=== PATIENT | female | born 1990 | race Caucasian/White ===

== ENCOUNTER 2022-11-10 11:18 | Outpatient (CLI) | payer BC, MEDICAID, SELFPAY | END 2022-11-10 11:19 | disposition home or self-care (01) | PROVIDERS: PCP Nurse Practitioner Family; Visit Provider Nurse Practitioner Family | DX: B19.20 Unspecified viral hepatitis C without hepatic coma (principal) | CPT/HCPCS: 36415; 87522 ==

== ENCOUNTER 2022-11-11 20:49 | Emergency (ER) | payer BC, MEDICAID, SELFPAY ==
[2022-11-11 20:56] VITALS: BP 108/64; PULSE 65; RESP 18; TEMP 36.6; O2SAT 97; BMI 28.4
[2022-11-11 21:42] LABS: Add Urine Microscopic? YES; Bilirubin Urine Neg (Negative); Blood Urine 2+ (Negative); Glucose Urine UA Norm (Normal); Ketones Urine 1+ (Negative); Leukocyte Esterase Urine 2+ (Negative); Nitrate Urine Negative (Negative); Protein Urine Neg (Negative); Specific Gravity, Urine 1.025 (1.005-1.030); Urine Appearance SL Hazy (CLEAR); Urine Color Yellow (Yellow); Urobilinogen Urine Neg (Negative); pH Urine 5 (5-7)
[2022-11-11 21:43] LABS: Bacteria Urine 1+ /hpf; Mucus Urine 2+ /hpf; RBC Urine 0-4 /hpf (0-2)
[2022-11-11 21:45] LABS: Add Urine Culture? No; Trichomonas Urine 2+ /hpf
--- NOTE | 2022-11-11 22:32 | XRR_ITS ---
PROCEDURE INFORMATION: Exam: XR Chest Exam date and time: 11/11/2022 11:13 PM Age: 32 years old Clinical indication: Shortness of breath; Additional info: SOB TECHNIQUE: Imaging protocol: Radiologic exam of the chest. Views: 1 view. COMPARISON: CR XR chest 2V* [id number] 01/24/2018 9:03 AM FINDINGS: Lungs: Unremarkable. No consolidation. Pleural spaces: Unremarkable. No pleural effusion. No pneumothorax. Heart/Mediastinum: Unremarkable. No cardiomegaly. Bones/joints: Unremarkable. XR/XR chest 1V portable [id number] IMPRESSION: No change, unremarkable
--- NOTE | 2022-11-11 22:35 | W.ED.NAVMDI ---
HPI - Nausea/Vomiting/Diarrhea General: Chief complaint: Nausea/Vomiting/Diarrhea Stated complaint: n/v, coughing Time Seen by Provider: 11/11/22 22:23 Source: patient Mode of arrival: ambulatory Limitations: no limitations History of Present Illness: 32-year-old female states that over the last 2 days she been having nausea vomiting along with some diarrhea. She states she is also had cough with some congestion and slight shortness of breath. She states she has some chronic pain in her left lower lung that is not new but the other symptoms are new. She denies any dysuria she had some diffuse abdominal cramping denies any severe pains. She denies any worsening proving factors. Associated nausea: Yes Associated symtoms: Reports nausea; Denies chest pain, dysuria or headache(s) Review of Systems Const: Denies: fever(s) or chills ENMT: Denies: throat pain or dental pain Card: Denies: chest pain Resp: Reports: non-productive cough; Denies: dyspnea GI: Reports: abdominal pain, nausea, vomiting and diarrhea : Denies: dysuria Musc: Denies: neck pain or back pain Skin/Breast: Denies: rash Neuro: Denies: headache(s) [facility] ED Female Reproductive History: Date of last menstrual period: 11/03/22 Physical Exam Const: COMMON NORMALS: no acute distress, patient oriented x3 and healthy appearing HENMT: COMMON NORMALS: normocephalic and atraumatic HEAD & SCALP: normocephalic and atraumatic Eye: COMMON NORMALS: Equal, round and reactive pupils present and EOMs intact bilaterally PUPIL: Yes Equal, round and reactive pupils present Neck/C-Spine: COMMON NORMALS: full ROM and supple Chest: COMMONS NORMALS: normal inspection of the chest and normal palpation of entire chest wall Resp: COMMON NORMALS: normal respiratory effort, No retractions, No use of accessory muscles and clear to auscultation bilaterally AUSCULTATION: clear to auscultation bilaterally Cardio: COMMON NORMALS: regular rate, regular rhythm and No murmurs present (Cardio) RATE: regular rate RHYTHM: regular rhythm GI: COMMON NORMALS: Normal to inspection, nondistended, normoactive bowel sounds present, Soft to palpation, non-tender and no masses PALPATION: Yes Soft to palpation Extremity: COMMON NORMALS: normal to inspection and full ROM Neuro: COMMON NORMALS: patient oriented x3, moves all extremities and no focal motor deficits Psych: COMMON NORMALS: mental status grossly normal, Normal thought process present and cooperative THOUGHT PROCESS: Normal thought process present Skin: COMMON NORMALS: no rashes or lesions noted and no wounds GENERAL SKIN EXAM: no rashes or lesions noted Course Vital Signs: Vital signs: Vital Signs Temperature 97.8 F 11/11/22 20:56 Pulse Rate 65 11/11/22 20:56 Respiratory Rate 18 11/11/22 20:56 Blood Pressure 109/64 11/12/22 00:31 Pulse Oximetry 97 11/11/22 20:56 Oxygen Delivery Me thod Room Air 11/11/22 20:56 MDM - Nausea/Vomiting/Diarrhea Medical Decision Making Patient presents here with cough along with vomiting some slight abdominal pain she been well-appearing here blood work here is all normal her exam at discharge benign she does have trichomonas in her urine we will treat her with Flagyl along with pain meds and nausea medicine she is to follow-up with PCP and return if worsening. Medical Records I reviewed the patient's medical records. Lab Data I reviewed the patient's lab results. 11/11/22 23:31 11/11/22 23:31 Radiology Impressions Chest X-Ray 11/11/22 22:32 IMPRESSION: No change, unremarkable Laboratory Results WBC 10.29 10^3/uL (3.29-11.43) 11/11/22 23:31 RBC 4.30 10^6/uL (3.85-5.65) 11/11/22 23:31 Hgb 11.90 g/dL (11.27-16.99) 11/11/22 23:31 Hct 36.8 % (36-47) 11/11/22 23:31 MCV 85.6 fl (85-98) 11/11/22 23:31 MCH 27.7 pg (27-33) 11/11/22 23:31 MCHC 32.3 g/dL (30-55) 11/11/22 23:31 RDW 13.9 % (12.1-15.1) 11/11/22 23:31 Plt Count 347 10^3/cmm (157-399) 11/11/22 23:31 MPV 8.9 fL (7.4-10.4) 11/11/22 23:31 Neut % (Auto) 48.8 % 11/11/22 23:31 Lymph % (Auto) 39.8 % 11/11/22 23:31 Irwin % (Auto) 8.0 % 11/11/22 23:31 Eos % (Auto) 2.9 % 11/11/22 23:31 Baso % (Auto) 0.2 % 11/11/22 23:31 Neut # (Auto) 5.02 10^3/uL (1.8-7.7) 11/11/22 23: Lymph # (Auto) 4.1 10^3/uL (0.8-4.8) 11/11/22 23:31 Irwin # (Auto) 0.8 10^3/uL (0.2-0.9) 11/11/22 23:31 Eos # (Auto) 0.3 10^3/uL (0.0-0.8) 11/11/22 23: Baso # (Auto) 0.0 10^3/uL (0.0-0.1) 11/11/22 23:31 Nucleated RBC % (auto) 0 % 11/11/22 23: Nucleated RBCs # 0.0 /100WBC 11/11/22 23:31 Sodium 141 mmol/L (136-145) 11/11/22 23: Potassium 4.0 mmol/L (3.5-5.1) 11/11/22 23:31 Chloride 107 mmol/L (98-107) 11/11/22 23: Carbon Dioxide 26 mmol/L (22-29) 11/11/22 23: Anion Gap 12.0 (5-19) 11/11/22 23: BUN 11 mg/dL (6-20) 11/11/22 23: Creatinine 0.6 mg/dL (0.5-0.9) 11/11/22 23: GFR Calculation 115.1 mL/min (90-130) 11/11/22 23: Glucose 110 mg/dL (65-115) 11/11/22 23:31 Calculated Osmolality 292 mOsm/kg (285-295) 11/11/22 23: Calcium 8.7 mg/dL (8.5-10.5) 11/11/22 23: Total Bilirubin 0.2 mg/dL (0.15-1.2) 11/11/22 23:31 AST 11 U/L (0-32) 11/11/22 23: ALT 12 U/L (0-33) 11/11/22 23: Alkaline Phosphatase 61 U/L (35-105) 11/11/22 23: Total Protein 6.4 g/dL (6.6-8.7) L 11/11/22 23: Albumin 4.0 g/dL (3.5-5.2) 11/11/22 23: Globulin 2.4 g/dL (1.3-4.6) 11/11/22 23: Lipase 27 U/L (13-60) 11/11/22 23: HCG, Qual Negative (Negative) 11/11/22 23: Urine Color Yellow (Yellow) 11/11/22 21:28 Urine Appearance Sl hazy (CLEAR) A 11/11/22 21: Urine pH 5 (5-7) 11/11/22 21:28 Ur Specific [place] 1.025 (1.005-1.030) 11/11/22 21:28 Urine Protein Neg (Negative) 11/11/22 21:28 Urine Glucose (UA) Norm (Normal) 11/11/22 21: Urine Ketones 1+ (Negative) H 11/11/22 21:28 Urine Blood 2+ (Negative) H 11/11/22 21:28 Urine Nitrate Negative (Negative) 11/11/22 21: Urine Bilirubin Neg (Negative) 11/11/22 21: Urine Urobilinogen Neg mg/dL (Negative) 11/11/22 21:28 Ur Leukocyte Esterase 2+ (Negative) H 11/11/22 21:28 Urine RBC 0-4 /hpf (0-2) H 11/11/22 21:28 Urine WBC 10-15 /hpf (0-5) H 11/11/22 21:28 Ur Squamous Epith Cells 10-15 /hpf (0-5) H 11/11/22 21:28 Amorphous Sediment Not Reportable 11/11/22 21:28 Urine Bacteria 1+ /hpf (NONE) H 11/11/22 21:28 Urine Mucus 2+ /hpf 11/11/22 21:28 Urine Trichomonas 2+ /hpf H 11/11/22 21:28 SARS-CoV-2 Ag (Rapid) negative (Negative) 11/11/22 23:44 Discharge Plan Discharge Patient Disposition: Home Clinical Impression: Vomiting, Abdominal pain, Trichomonal cystitis and urethritis Condition: Stable Prescriptions: New hydrocodone-acetaminophen 5-325 mg tablet 1 tab PO Q6H PRN (Reason: pain) Qty: 14 0RF metronidazole 500 mg tablet 500 mg PO Q8H 7 Days Qty: 21 0RF ondansetron 4 mg tablet,disintegrating 4 mg PO Q6H PRN (Reason: nausea and vomiting) Qty: 14 0RF Discharge Orders: Discharge ED (Routine); Ordered 11/12/22 Ordered By: Mirza Pino Referrals: Jordin Mahoney MD [Primary Care Provider] - 1-3 days Discharge Diet: Advance as tolerated Discharge Activity: Resume usual activity Patient Instructions: Abdominal Pain (ED), Opioid Safety Coding Level of Care Code ED 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
[2022-11-11] MEDS: ondansetron 2 mg/ML SDV 2 mL 4 MG IVP (23:36)
[2022-11-11] MEDS: morphine 4 mg/mL SDV 1 mL IVP (23:37)
[2022-11-11] MEDS: sodium chloride 0.9% 1,000 ML 999 ML IV (23:38)
[2022-11-11 23:51] LABS: HCG, Serum Qual Negative (Negative)
[2022-11-11 23:57] LABS: Alanine Aminotransferase 12 U/L (0-33); Alkaline Phosphatase 61 U/L (35-105); Aspartate Amino Transferase 11 U/L (0-32); Blood Urea Nitrogen 11 mg/dL (6-20); Calcium 8.7 mg/dL (8.5-10.5); Carbon Dioxide 26 mmol/L (22-29); Chloride 107 mmol/L (98-107); Globulin 2.4 g/dL (1.3-4.6); Glomerular Filtration Rate 115.1 mL/min (90-130); Glucose 110 mg/dL (65-115); Lipase 27 U/L (13-60); Osmolality Calculated 292 mOsm/kg (285-295); Sodium 141 mmol/L (136-145); Total Bilirubin 0.2 mg/dL (0.15-1.2); Total Protein 6.4 g/dL (6.6-8.7)
[2022-11-12 00:04] LABS: SARS Covid-2 Antigen negative (Negative)
[2022-11-12 00:10] LABS: Basophils % 0.2 %; Eosinophils # 0.3 10^3/uL (0.0-0.8); Eosinophils % 2.9 %; Hematocrit 36.8 % (36-47); Lymphocytes # 4.1 10^3/uL (0.8-4.8); Lymphocytes % 39.8 %; Mean Corpuscular HGB Conc 32.3 g/dL (30-55); Mean Corpuscular Hemoglobin 27.7 pg (27-33); Mean Corpuscular Volume 85.6 fl (85-98); Mean Platelet Volume 8.9 fL (7.4-10.4); Monocytes # 0.8 10^3/uL (0.2-0.9); Neutrophils # 5.02 10^3/uL (1.8-7.7); Neutrophils % 48.8 %; Nucleated Red Blood Cells % 0 %; Platelet Count 347 10^3/cmm (157-399); Red Cell Distribution Width 13.9 % (12.1-15.1); Slide Review Slide Review Perform; White Blood Count 10.29 10^3/uL (3.29-11.43)
[2022-11-12 00:31] VITALS: BP 109/64
[2022-11-14 05:25] LABS: Chlamydia Trachomatis RNA TMA NOT DETECTED (NOT DETECTED); Neisseria Gonorrhoeae RNA, TMA NOT DETECTED (NOT DETECTED)
== END 2022-11-12 00:43 | disposition home or self-care (01) ==
PROVIDERS: Emergency Provider Emergency Medicine; PCP Family Medicine
DX: A59.03 Trichomonal cystitis and urethritis (principal); R11.11 Vomiting without nausea; Z20.822 Contact with and (suspected) exposure to COVID-19
CPT/HCPCS: 71045; 80053; 81001; 83690; 84703; 85025; 87426; 87491; 87591; 96374; 96375; 99284; J2270; J2405; J7030

== ENCOUNTER 2022-12-17 06:59 | Outpatient (CLI) | payer BC, MEDICAID, SELFPAY ==
[2022-12-17 07:30] VITALS: BP 163/113
== END 2022-12-17 07:00 | disposition home or self-care (01) ==
LOC: RT 07:00
PROVIDERS: PCP Family Medicine; Visit Provider Internal Medicine Pulmonary Disease
DX: R06.02 Shortness of breath (principal)
CPT/HCPCS: 94010; 94618; 94726; 94729

== ENCOUNTER → 2022-12-23 09:32 | Outpatient (BNVA) | payer BC, MEDICAID, SELFPAY | PROVIDERS: PCP Family Medicine; Visit Provider Podiatrist Foot & Ankle Surgery | DX: M79.671 Pain in right foot (principal); M79.672 Pain in left foot; M72.2 Plantar fascial fibromatosis; M62.461 Contracture of muscle, right lower leg; M62.462 Contracture of muscle, left lower leg | CPT/HCPCS: 73630 ==

== ENCOUNTER 2023-02-04 06:48 | Outpatient (CLI) | payer BC, MEDICAID, SELFPAY ==
--- NOTE | 2023-02-04 07:15 | MR_ITS ---
WS: [id number] MRI LEFT FOOT WITHOUT CONTRAST. COMPARISON: Radiograph 12/23/2022 Multiplanar, multisequence imaging is performed without contrast. Focal area of increased T2 signal and fusiform appearance of the plantar fascia. Fusiform enlargement extends over a width of 5 mm at its largest. Signal abnormality changes began 11 mm distal to the ca lcaneal insertion site. There is a small area of increased fluid signal within the fascia and surroun ding fascial edema. No calcaneal abnormality. No bone spurring. The remaining foot, bones, tendons and ligaments are negative. IMPRESSION: Mild changes of plantar fasciitis 11 mm from the calcaneal insertion site. Suspect partial tear in th e central fusiform thickening of the fascia.
== END 2023-02-04 06:49 | disposition home or self-care (01) ==
LOC: RAD 06:48
PROVIDERS: PCP Family Medicine; Visit Provider Podiatrist Foot & Ankle Surgery
DX: M79.89 Other specified soft tissue disorders (principal); M72.2 Plantar fascial fibromatosis
CPT/HCPCS: 73718

== ENCOUNTER 2023-02-24 14:00 | Outpatient (CLI) | payer BC, MEDICAID, SELFPAY ==
--- NOTE | 2023-02-24 14:30 | CT_ITS ---
WS: [id number] CT chest wo con [id number] HISTORY: f/u LEFT lung nodule. TECHNIQUE: Axial imaging performed through the thorax. Coronal and sagittal reformats are submitted. [facility] use at least one of these dose optimization techniques: automated exposure control; mA and/or kV adjustment per patient size (includes targeted exams where dose is mat ched to clinical indication); or iterative reconstruction. CONTRAST: None DLP: 594.52 mGy.cm COMPARISON: 06/30/2022 Lungs and central airway: Solid, lobulated nodule in the LEFT upper lobe measures 1.8 x 1.7 cm. There are numerous adjacent satellite nodules in the LEFT upper lobe. There has been a very slight increas e in size of this nodule since 06/30/2022. There are small nodules along the bronchi proximally of the LEFT upper lobe. These peribronchial nodules with the largest measuring 8 mm. No additional mass or nodules. Pleura: Normal. No pleural effusion. Heart and pericardium: Normal size heart with no pericardial effusion. Mediastinum and jan: Some very slight increased soft tissue in the anterior mediastinal fat is proba alex thymic tissue. No mass. Vessels: Normal size aortic and pulmonary artery. No coronary artery calcifications. Chest wall and lower neck: No soft tissue masses. Upper abdomen: Normal. Osseous structures: No destructive process. IMPRESSION: 1. Very slight increase in size of the solid LEFT upper lobe pulmonary mass now measuring 1.8 x 1.7 c m. Measurements at a similar location from the study of 06/30/2022 are 1.6 x 1.6 cm. Low-grade neoplas m is not excluded. This also may be postinfectious. Consider PET/CT imaging or navigational bronchosc opy sample. 2. There are additional satellite nodules along the main nodule in the LEFT upper lobe. Several of th kay nodules extend along the bronchi. 3. No adenopathy.
== END 2023-02-24 14:01 | disposition home or self-care (01) ==
LOC: RAD 14:00
PROVIDERS: PCP Family Medicine; Visit Provider Internal Medicine Pulmonary Disease
DX: R91.1 Solitary pulmonary nodule (principal); R91.8 Other nonspecific abnormal finding of lung field
CPT/HCPCS: 71250

== ENCOUNTER 2023-03-10 05:42 | Day surgery (SDC) | payer BC, MEDICAID, SELFPAY ==
[2023-03-10] VITALS (9 sets, daily range): BP systolic 81–123; BP diastolic 49–81; PULSE 69–84; RESP 16; TEMP 36.1–36.3; O2SAT 91–98; BMI 29.0
--- NOTE | 2023-03-10 | XR_ITS ---
WS: [id number] Portable AP upright chest, 03/10/2023,1000 hours Clinical Data: POST UPPER LOBE BX Comparison: Portable chest, 03/10/2023, 0952 hours Findings: The endotracheal tube has been removed. The patchy left midlung opacities remain the same. No pneumothorax is noted. Impression: 1. No change in patchy left midlung opacities. 2. Removal of endotracheal tube.
--- NOTE | 2023-03-10 07:06 | W.PM.OPSUD ---
Surgery/Procedure H&P Update DATE OF PROCEDURE: March 10, 2023 DATE H&P PERFORMED: 03/04/23 H&P UPDATE INFORMATION: I have reviewed H&P completed within last 30 days, I have examined patient prior to procedure and No changes to prior documentation PREOP DIAGNOSIS: rule out malignancy PRIMARY INDICATION FOR PROCEDURE: CT chest 02/24/23 Very slight increase in size of the solid LEFT upper lobe pulmonary mass now measuring 1.8 x 1.7 cm. Measurements at a similar location from the study of 06/30/2022 are 1.6 x 1.6 cm. Low-grade neoplasm is not excluded. PLANNED PROCEDURE: Operation Date: 03/10/23 07:00 Proposed Procedures p ION,EBUS, 05316, 13434, 70018, 90567, 25867, 54740, 62258, 91836, 55433, 59199, 10322, 07315, 13914,R91.1(Not Applicable) - Rick Cruz MD s Ebus(Not Applicable) - Rick Cruz MD
--- NOTE | 2023-03-10 07:21 | SC_ITS ---
WS: [id number] C ARM fluoroscopy for left lung bronchoscopy, 03/10/2023 Clinical Data: ion Comparison: CT chest, 02/24/2023 Findings: Dr. Cruz performed left upper lobe bronchoscopy. Impression: Left upper lobe bronchoscopy.
[2023-03-10 07:23] LABS: OR HCG Qualitative Urine Negative (Negative)
[2023-03-10] MEDS: sodium chloride 0.9% 1,000 ML 30 ML IV (07:25)
[2023-03-10] MEDS: lidocaine 1% INJ 10 mL (per mL) XX (07:35)
--- NOTE | 2023-03-10 07:50 | ANES.PREANE2 ---
Pre-Anesthetic Assessment Height/Weight: Height 1.8 m Weight 94.347 kg Preop Diagnosis: rule out malignancy Operation Date: 03/10/23 07:00 Proposed Procedures p ION,EBUS, 11685, 30603, 67164, 76621, 56543, 68698, 39073, 52191, 41987, 23140, 55221, 46161, 12679,R91.1(Not Applicable) - Rick Cruz MD s Ebus(Not Applicable) - Rick Cruz MD Familial anesthetic complications: none Was Beta Bipin taken within 24 hours: N/A Was Clonidine taken within 24 hours: N/A Last intake: Intake Last Liquid Date 03/09/23 Last Liquid Time 22:30 Last Solid Date 03/09/23 Last Solid Time 22:30 Social Tobacco and No alcohol Exam alert, oriented x 3, clear to auscultation bilaterally and regular rate & rhythm Airway Submandibular: within normal limits Cervical ROM: within normal limits Mallampati: Class II Dentition: full Pulmonary Chronic Obstructive Pulmonary Disease Pulmonary nodule [facility] Osteoarthritis/DJD Anesthetic Plan ASA status: 2 Anesthesia: General Medications/Allergies Home Medications Medication Instructions Recorded Confirmed Last Taken Type ondansetron 4 mg disintegrating 4 mg PO Q6H PRN nausea and 11/12/22 03/10/23 Unknown Rx tablet vomiting #14 tabs baclofen 10 mg tablet 10 mg PO DAILY 12/02/22 03/10/23 03/08/23 History citalopram 20 mg tablet (Celexa) 20 mg PO DAILY 12/02/22 03/10/23 03/08/23 History hydrochlorothiazide 25 mg tablet 25 mg PO DAILY 12/02/22 03/10/23 03/08/23 History nicotine (polacrilex) 4 mg gum 4 mg buccal Q1H #100 ea 12/02/22 03/10/23 Unknown Rx nicotine See Rx Instructions transdermal 12/02/22 03/10/23 Unknown Rx 21mg/24hr-14mg/24hr-7mg/24hr daily .COMPLEX #56 patches transderm patches,sequentl tiotropium bromide 18 mcg capsule 1 cap inhalation DAILY #60 12/02/22 03/10/23 Unknown Rx with inhalation device (Spiriva inhalations with HandiHaler) ALIYAH hooper #1 ea 02/20/23 03/06/2303/06/23 Rx meloxicam 15 mg tablet 15 mg PO DAILY #14 tabs 03/06/23 03/10/23 03/08/23 Rx Allergies Allergy/AdvReac Type Severity Reaction Status Date / Time No Known Allergies Allergy Verified 03/10/23 06:07 [facility] Anesthesia Social History Smoking and tobacco/nicotine status: current every day tobacco/nicotine user cigarettes Packs smoked per day: 1 Years cigarettes smoked: 18 [ Other cigarette details: started at age 14] Female Reproductive History Date of last menstrual period: 02/20/23 Data Anesthesia Cardiac Studies: No Data to Display
--- NOTE | 2023-03-10 08:47 | XR_ITS ---
WS: [id number] Portable AP supine chest, 03/10/2023 Clinical Data: ION/EBUS Comparison: Portable chest, 11/11/2022 Findings: There is a left midlung patchy opacity which probably represents minimal hemorrhage followi ng the left upper lobe bronchoscopy. The right lung is clear. The endotracheal tube is above the richard na. Heart size is normal. The pulmonary vascularity is not increased. No pneumonia or pneumothorax is seen. Impression: 1. Minimal patchy left midlung opacity. 2. Endotracheal tube above the kenny.
--- NOTE | 2023-03-10 09:37 | P.OP_ITS ---
Operative Report Date of procedure: March 10, 2023 Pre-op diagnosis: suspected low grade malignacy Post-op diagnosis: same Procedure done: -Dx Bronchoscope w/Washings or airway inspection -Bx Bronchoscope w/Brushings or protected brushings -Dx Bronchoscope w/BAL -Bronch with computer image guided Navigational Bronchoscopy -Bronchoscopy w/Transbronchial lung biopsy(s), single lobe using forceps -Bronchoscopy w/Transbronchial needle aspiration biopsy(s), tracheal, main stem, and/or lobar bronchus -Bronchoscopy w/ therapeutic aspiration of the tracheobronchial tree (clearance of airway secretions, removal of mucus plugs) -EBUS Sampling 1/2 nodes Surgeon: Rick Cruz MD Brief History: Ms. Priscilla horton comes to pulmonary clinic for eval ADARSH nodule per Dr. Mahoney. Patient has hx of smoking 1 ppd X 18 years, currently vaping. Patient had a CT performed in June 2022 [place] in [place]-report read 17 x 19 mm indeterminate nodule left upper lobe with additional subcentimeter nodules in clusters. This was unchanged over 2 years as per the report. I repeated a 6-month follow-up CT chest 02/24/2023-showed solid lobulated left upper lobe measuring 1.8 x 1.7 cm. There are numerous adjacent satellite nodules in the left upper lobe. There has been as of this nodule since 06/30/2022. Low-grade neoplasm is not excluded. Recommended biopsy versus PET CT scan. Today scheduled for robotic navigational bronchoscopy guided biopsy as well as endobronchial ultrasound-guided surveillance of mediastinal/hilar lymph nodes. Procedure: ROBOTIC BRONCHOSCOPY NOTE: Pre-procedure Verification: Prior to the procedure, the patient's identity was verified by full name, date of and medical record number. The patient's identity was verified on all pertinent medical records. Also prior to the procedure, a History and Physical was performed, and patient medications, allergies and sensitivities were reviewed. The patient's tolerance of previous anesthesia was reviewed. The risks and benefits of the procedure and the sedation options and risks were discussed with the patient. All questions were answered and informed consent was obtained. Planning: Using the [employer] planning software, this patient?s preoperative CT was loaded onto the system and then target and pathway mapping was performed. This was all done prior to the start of the procedure and appropriate plan verified prior to induction. Anesthesia: General anesthesia was used. Please see anesthesiology documentation for full details. A modified LNVP/Jeni Protocol was used for robotic bronchoscopy with rapid Intubation, recruitment maneuvers, Tidal Volume around 8-10mL/Kg [place] Body Weight, and PEEP 10-15 as feasible. Time-Out: Prior to the start of the procedure, the patient's identification, proposed procedure, accurate signed consent, correctly labeled images and records, and need for prophylactic antibiotics were verified by the physician, the nurse, the anesthesiologist and the telephone information supervisor in the procedure room. Procedural Details: After obtaining informed consent, The procedure was accomplished without difficulty. The patient tolerated the procedure well. Patient preparation: Patient was placed under general anesthesia. An 8.5 ETT was placed for bronchoscopy. The larynx and vocal cords were not visualized. The trachea was anatomically normal The right sided airway was anatomically normal without endobronchial lesions.Moderate thick [place] appearing secretions. The left sided airway was anatomically normal without endobronchial lesions. Moderate thick [place] appearing secretions. Therapeutic aspiration of the airways, initial encounter, was performed at the left brochial tree. The therapeutic bronchoscope was then removed. We communicated with the anesthesia team to ensure proper ventilator settings for optimal peripheral bronchoscopy. FIRST LOBE: The Ion Shape Sensing Robotic Assisted Bronchoscope was brought into the field and the process of registration was carried out. The guide catheter was used for peripheral navigational bronchoscopy using the planned pathway into the Left upper lobe lesion and was able to be wedged peripherally at a distance of 10 mm away from the target. We locked the catheter position in, and removed the vision probe. We introduced the radial EBUS probe and obtained an eccentric signal [id number] image location relative to the lesion in the same lobe. We confirmed our location with a fluoroscopic C-arm. We then removed the R-EBUS and introduced the biopsy tools starting with a 21G ION bronchoscopic peripheral needle for Transbronchial Needle Aspirations (TBNA). The first pass was not sent for Rapid On Site Evaluation (CORAL) as we dont have onsite pathology. We continued more biopsies in a cloud format. Transbronchial biopsies of left upper lobe lesion were using forceps. Transbronchial biopsy technique was selected because the sampling site was not visible endoscopically. The sampling device penetrated the full thickness of the bronchial wall to obtain the biopsy of lung tissue. 5 biopsy passes were performed, and the same number of biopsy samples were obtained. Endobronchial protective brushings were collected at the left upper lobe lesion using a microbiology/cytology brush. Finally, we used a 10cc syringe filled with normal saline connected to the proximal portion of the ION catheter and slowly injected 20 cc and aspirated the contents for a bronchial alveolar lavage of the same target lobe. The return was cloudy and blood tinged 13 cc . At this point and after confirming the absence of bleeding, we removed the channel. Minimal blood residue was cleared from the airway and the peripheral navigation portion of the procedure was concluded. Empiric cold saline was instilled through the catheter and tamponade held for 1-5 minutes. Next, we turned our attention to linear EBUS staging. An EBUS exam was performed: - Stations 11 L were enlarged > 5mm and sampled. - Stations 10L, 4L, 7, 4R, 10R, and 11R were also scanned but no obvious lymph nodes were identified and thus did not meet criteria for sampling. Level 11L station was identified with the EBUS scope at the LLL/L hilum and 4 passes were made using a 21 G Olympus TBNA needle. Rapid onsite path evaluation (CORAL) was not utilized for this case. Following completion of all diagnostic and therapeutic procedures, hemostasis was verified. The scope was removed and procedure concluded. Samples: A. Left upper lobe lesion 1. Total of 5 passes were made using needle aspiration ; we do not have onsite pathology and so all the material was placed in formalin for histopathology 2. Targeting the same area 5 passes were made using forceps ; we do not have onsite pathology and so all the material was placed in formalin for histopathology 3. Targeting the same area 1 pass were made using Cytobrush ; we do not have onsite pathology and so all the material was placed in formalin for hi stopathology 4. Bronchoscope was wedged at the entrance of the anterior segment of left upper lobe, 20 mL of saline was instilled and returned 13 mL of bronchoalveolar lavage . The fluid was mixed with blood and specks of tissue. Samples for cell count, cytology, cultures B. EBUS guided Fine-needle aspiration biopsies were taken from station 11 L (18010) 5. Total of 3 passes were made using needle aspiration([id number]) from station 11 L; all the material was placed in formalin and sent for histopathology Complications: None.The patient was extubated and brought to the PACU in stable condition. Postprocedure chest x-ray: There is no evidence of pneumothorax Disposition: Patient can be discharged home in stable condition. Pt, and her family are aware that I am going to call them to update final biopsy results once available.
[2023-03-10] MEDS: ondansetron 2 mg/ML SDV 2 mL 4 MG IVP ×2 (09:40→09:56)
[2023-03-10 09:56] LABS: Cyto Order Verification Order Verified
[2023-03-10 09:57] LABS: Apprearance, Bronch Wash Cloudy (CLEAR); Color, Bronc Wash Red; PATH Referral Yes
[2023-03-10] MEDS: ketorolac 30 mg/mL INJ IVP (10:30)
[2023-03-10 12:19] LABS: Total Cells Counted Bronch 200
--- NOTE | 2023-03-10 13:34 | ANE.PACU2 ---
Inpatient post-anesthesia follow up: Airway intact: Yes Vital signs: Temperature 97.4 F Pulse Rate 69 Respiratory Rate 16 Blood Pressure 107/75 Pulse Oximetry 98 Oxygen Delivery Me thod Room Air Oxygen Flow Rate Fraction of Inspir ed Oxygen Hydration adequate: Yes Nausea and vomiting: No Pain level: 3 Mental status: Baseline
== END 2023-03-10 10:55 | disposition home or self-care (01) ==
PROVIDERS: Anesthesiology; PCP Family Medicine; Visit Provider Internal Medicine Pulmonary Disease
PROC: 0BJ08ZZ Inspection of Tracheobronchial Tree, Via Natural or Artificial Opening Endoscopic (ICD-10-PCS; CPT 31622; principal; 2023-03-10 07:00)
PROC: BB4BZZZ Ultrasonography of Pleura (ICD-10-PCS; 2023-03-10 07:00)
DX: R91.8 Other nonspecific abnormal finding of lung field (principal); F17.290 Nicotine dependence, other tobacco product, uncomplicated; J44.9 Chronic obstructive pulmonary disease, unspecified; M19.90 Unspecified osteoarthritis, unspecified site
CPT/HCPCS: 31623; 31624; 31627; 31628; 31629; 31645; 31652; 71045; 76000; 80503; 81025; 84703; 87070; 87205; 88112; 88305; 89050; J1100; J1885; J2405; J2704; J3010; J3490; J7030

== ENCOUNTER 2023-05-12 06:51 | Outpatient (CLI) | payer BC, MEDICAID, SELFPAY ==
[2023-05-12 06:57] VITALS: BP 121/67; PULSE 78; RESP 18; TEMP 36.7; O2SAT 99; BMI 27.8
--- NOTE | 2023-05-12 15:01 | PETR_ITS ---
PROCEDURE INFORMATION: Exam: PET/CT Skull Base to Mid-thigh Exam date and time: 05/12/2023 9:00 AM Age: 33 years old Clinical indication: Solitary pulmonary nodule in the left upper lobe. Very slight increase in size of the solid left upper lobe pulmonary mass now measuring 1.8 x 1.7. Cm. Measurements at a similar location from the study of 06/30/2022 are 1.6 x 1.6 cm. Low-grade. Neoplasm is not excluded. This also May be postinfectious. Consider pet/ct imaging or navigational. Bronchoscopy sample. LABS AND CLINICAL REPORTS: Glucose: 92 mg/dl Treatment strategy for malignancy (PET staging): Initial Staging (PI) TECHNIQUE: Imaging protocol: Following at least four-hour fasting and following the injection of radiopharmaceutical, low dose CT images were obtained. Then, PET images were obtained. Attenuation corrected images were constructed using the CT scan. Fused images of PET and CT were reviewed. The standardized uptake values (SUV) reported below are maximum values within a region of interest, expressed in gm/ml. Exam includes orbital meatal line to mid-thigh. Radiopharmaceutical: 14.42 mCi F-18 FDG (Fluorodeoxyglucose), IV. Time of imaging post radiopharmaceutical administration: 1 hour Injection site: Right forearm COMPARISON: CT ch abdpel wo/w [id number] 06/30/2022 12:11 PM FINDINGS: Brain: Visualized brain has normal physiologic uptake. Paranasal sinuses: No abnormal uptake. Small retention cyst inferiorly in the right maxillary sinus. Pharynx: No abnormal uptake. Larynx: No abnormal uptake. Lungs, pleura and trachea: No abnormal uptake. About 1.8 cm left upper lobe nodule with a cluster of tiny satellite nodules measuring up to 0.4 cm is not FDG avid (0.7 SUV) compatible with granuloma. No pleural effusion. Heart: Normal physiologic uptake. There is no cardiomegaly. No coronary artery calcification is visualized. There is no pericardial effusion. Mediastinal space: No abnormal uptake. Liver: No abnormal uptake. Gallbladder and bile ducts: No abnormal uptake. No calcified gallstones. Pancreas: No abnormal uptake. Spleen: No abnormal uptake. No splenomegaly. Adrenal glands: No abnormal uptake. No nodules. Kidneys and ureters: Normal physiologic uptake. No hydronephrosis. Stomach and bowel: No abnormal uptake. Intraperitoneal and retroperitoneal spaces: No abnormal uptake. No ascites. Urinary bladder: Normal physiologic uptake. Reproductive: No abnormal uptake. Vasculature: No abnormal uptake. Lymph nodes: No abnormal uptake. No lymphadenopathy in the head, neck, chest, abdomen, pelvis, and extremities. Bones/joints: No abnormal uptake in the visualized axial and appendicular skeleton. Soft tissues: No abnormal uptake in the visualized head, neck, chest, abdomen, pelvis, and extremities. [id number] IMPRESSION: No abnormal radiotracer uptake to suggest malignancy. Benign granulomas in the left upper lobe.
== END 2023-05-12 06:52 | disposition home or self-care (01) ==
LOC: GILAB 06:51
PROVIDERS: PCP Family Medicine; Visit Provider Internal Medicine Pulmonary Disease
DX: R91.1 Solitary pulmonary nodule (principal)
CPT/HCPCS: 76937; 78815; A9552

== ENCOUNTER 2023-06-10 05:46 | Day surgery (SDC) | payer BC, MEDICAID, SELFPAY ==
[2023-06-10] VITALS (7 sets, daily range): BP systolic 91–121; BP diastolic 53–83; PULSE 71–85; RESP 16–18; TEMP 36.1–36.2; O2SAT 92–100; BMI 28.5
[2023-06-10 06:11] LABS: OR HCG Qualitative Urine Negative (Negative)
[2023-06-10] MEDS: sodium chloride 0.9% 1,000 ML 30 ML IV (06:22)
[2023-06-10] MEDS: gabapentin 300 mg Capsule PO (06:23)
[2023-06-10] MEDS: acetaminophen 1,000 MG/100 ML PIGGYBACK 400 MG IV (06:23)
--- NOTE | 2023-06-10 06:34 | ANES.PREANE2 ---
Pre-Anesthetic Assessment Height/Weight: Height 1.8 m Temp Pulse Resp BP Pulse Ox O2 Del Method 97.0 F L 84 18 121/83 98 Room Air 06/10/23 06:14 06/10/23 06:14 06/10/23 06:14 06/10/23 06:14 06/10/23 06:14 06/10/23 06:16 Preop Diagnosis: Soft tissue mass left foot Operation Date: 06/10/23 07:00 Proposed Procedures p Excision Mass/Lesion/ Excision soft tissue mass left foot(Left) - Edgar Juárez DPM s Plantar Fasciectomy(Left) - Edgar Juárez DPM Familial anesthetic complications: None Was Beta Bipin taken within 24 hours: N/A Was Clonidine taken within 24 hours: N/A Last intake: Intake Last Liquid Date 06/09/23 Last Liquid Time 21:00 Last Solid Date 06/09/23 Last Solid Time 22:00 Social Tobacco and No alcohol Exam alert, oriented x 3, clear to auscultation bilaterally and regular rate & rhythm Airway Mallampati: Class III Dentition: full Pulmonary Chronic Obstructive Pulmonary Disease pulm nodule Anesthetic Plan ASA status: 2 Anesthesia: MAC Risk of > 500 ml blood loss (7ml/kg in children): No Medications/Allergies Home Medications Medication Instructions Recorded Confirmed Last Taken Type baclofen 10 mg tablet 10 mg PO DAILY 12/02/22 06/10/23 05/11/23 History citalopram 20 mg tablet (Celexa) 20 mg PO DAILY 12/02/22 06/09/23 06/10/23 History hydrochlorothiazide 25 mg tablet 25 mg PO DAILY 12/02/22 06/09/23 06/10/23 History tiotropium bromide 18 mcg capsule 1 cap inhalation DAILY #60 12/02/22 06/10/23 Unknown Rx with inhalation device (Spiriva inhalations with HandiHaler) albuterol sulfate 90 mcg/actuation 1 inh inhalation Q6H PRN shortness 03/26/23 06/10/23 Unknown Rx aerosol inhaler (Ventolin HFA) of breath or wheezing #8.5 grams meloxicam 15 mg tablet 15 mg PO DAILY #30 tabs 05/08/23 06/10/23 05/11/23 Rx trazodone 100 mg tablet 100 mg PO PRN 06/10/23 06/10/23 Unknown History Allergies Allergy/AdvReac Type Severity Reaction Status Date / Time No Known Allergies Allergy Verified 06/10/23 06:08 Current Medications Generic Name Dose Route Start Last Admin Trade Name Elif PRN Reason Stop Dose Admin Sodium Chloride 1,000 mls @ 30 mls/hr 06/10/23 06:00 06/10/23 06:22 Sodium Chloride 0.9% IV 06/11/23 05:59 30 mls/hr .Q24H RODOLFO Administration PFSH Anesthesia Social History Smoking and tobacco/nicotine status: current every day tobacco/nicotine user cigarettes Packs smoked per day: 1 Years cigarettes smoked: 18 [ Other cigarette details: started at age 14] Female Reproductive History Date of last menstrual period: 06/08/23 Data Anesthesia Cardiac Studies: No Data to Display
--- NOTE | 2023-06-10 06:42 | P.HPUD_ITS ---
Surgery/Procedure H&P Update DATE OF PROCEDURE: June 10, 2023 DATE H&P PERFORMED: 06/01/23 H&P UPDATE INFORMATION: I have reviewed H&P completed within last 30 days, I have examined patient prior to procedure, No changes to prior documentation and H&P is in [facility] EMR on date indicated PREOP DIAGNOSIS: Soft tissue mass left foot PLANNED PROCEDURE: Operation Date: 06/10/23 07:00 Proposed Procedures p Excision Mass/Lesion/ Excision soft tissue mass left foot(Left) - Edgar Juárez DPM s Plantar Fasciectomy(Left) - Edgar Juárez DPM
[2023-06-10] MEDS: ceFAZolin 2,000 MG in sodium chloride 0.9% (plus) 50 ML 100 MG IV (06:59)
[2023-06-10] MEDS: BUPivacaine 0.5% INJ 30 mL XX (07:16)
--- NOTE | 2023-06-10 07:42 | W.PM.BPON ---
Date of procedure: 06/10/2023 Surgeon name: Dr. Edgar Juárez D.P.M. Energy Systems Engineer(s) name(s): Jocelyn Procedure(s) performed: Soft tissue mass excision left foot, plantar fasciotomy Description of findings: Thickened medial band of plantar fascia left foot with overlying lipomatous soft tissue mass Estimated blood loss: 5 cc Tourniquet time: 18 minutes Specimen(s) removed: Soft tissue mass left foot Post-operative diagnosis: Lipoma, plantar fasciosis left foot
--- NOTE | 2023-06-10 07:44 | P.OP_ITS ---
Operative Report Date of procedure: June 10, 2023 Pre-op diagnosis: 1. Plantar fasciitis left foot 2. Soft tissue mass left foot Post-op diagnosis: Same Post-op findings: Adipose tissue accumulated over medial band of plantar fascia with thickened medial band of plantar fascia Procedure done: 1. Soft tissue mass excision left foot CPT 56279 2. Plantar fasciotomy of medial band CPT 01901 Implants: None Specimens removed/disposition: Soft tissue mass left foot Surgeon: Edgar Juárez DPM Agricultural Extension Officer: Jocelyn Estimated blood loss: 5 cc 18 minutes Complications: None Findings: See above Procedure: Patient is a 33-year-old female that has a history of persistent plantar fasciitis and overlying soft tissue mass. The patient has had the aforementioned chief complaint for some time. Conservative treatment measures have been attempted and the patient has opted for surgical intervention at this time. A lengthy discussion regarding the procedure, including risks and complications has been had with the patient and is noted in the recent clinic note. Written and verbal consent have been obtained. All patient questions have been answered to the patient?s satisfaction. No written or verbal guarantees have been given or implied. The patient has been NPO since midnight. The history has been reviewed and the history and physical is current. The signed consent was confirmed and placed in the patient chart. Patient imaging has been reviewed and is consistent with the diagnosis. Under mild sedation, the patient was brought into the operating room and placed on the table in the supine position. IV antibiotics were given by the anesthesia team as preoperative surgical prophylaxis. General sedation was then performed by the anesthesiateam. A pneumatic tourniquet was then placed about the left ankle. The operative extremity was then prepped and draped in the usual fashion. The extremity was then elevated and exsanguinated before the tourniquet was inflated to 250 mmHg. After inflation, the following procedure was then performed. Attention was directed to the medial aspect of the left heel where a 3.5 cm incision was made directly medial at the level of the plantar fascia. Dissection was carried down through subcutaneous and superficial fascia. There was noted to be overlying lipomatous tissue that was surrounding the medial band of the plantar fascia. This enlarged tissue was removed from the foot and passed from the operative field to be sent as specimen. Dissection was carried down to the level of the medial band of the plantar fascia. This was noted to be thickened but intact. Metzenbaum scissors were used to release the most medial portion of the plantar fascia. The site was then irrigated with copious amounts of sterile saline before attention was directed to closure. Skin was closed using 3-0 nylon in horizontal mattress fashion. The tourniquet was let down and good hyperemic response was noted to all digits of the left foot. The incision site was dressed with Xeroform, 4 x 4 gauze, Kerlix, Jhony. Patient was placed in a cam boot. The patient tolerated the procedure and anesthesia well and without complication. The patient was transported from the operating room to the recovery room with vital signs stable and vascular status intact to all digits of the left foot. The patient was given both written and verbal instructions to remain weightbearing as tolerated to the operative extremity, to keep dressings/splint clean, dry and intact and to take pain medication as directed. The patient will follow-up in the outpatient setting at their scheduled appointment. The patient was discharged with my personal number and was instructed to call if any questions or issues should arise. They were discharged home once anesthesia criteria was met.
[2023-06-10] MEDS: cetylpyridinium Lozenge 1 EACH MUCOUS MEM (08:23)
--- NOTE | 2023-06-10 08:40 | ANE.PACU2 ---
Inpatient post-anesthesia follow up: Airway intact: Yes Vital signs: Temperature 97.1 F Pulse Rate 71 Respiratory Rate 18 Blood Pressure 112/74 Pulse Oximetry 100 Oxygen Delivery Me thod Room Air Oxygen Flow Rate 6 Fraction of Inspir ed Oxygen Hydration adequate: Yes Nausea and vomiting: No Pain level: 1 Mental status: Baseline
== END 2023-06-10 08:40 | disposition home or self-care (01) ==
PROVIDERS: PCP Family Medicine; Visit Provider Podiatrist Foot & Ankle Surgery
PROC: (CPT 28060; principal; 2023-06-10 07:00)
PROC: (CPT 28060; 2023-06-10 07:00)
DX: M72.2 Plantar fascial fibromatosis (principal); D17.39 Benign lipomatous neoplasm of skin and subcutaneous tissue of other sites; J44.9 Chronic obstructive pulmonary disease, unspecified; F17.210 Nicotine dependence, cigarettes, uncomplicated
CPT/HCPCS: 28060; 84703; 88307; J0131; J0690; J2704; J3010; J3490; J7030

== ENCOUNTER 2023-09-30 21:22 | Emergency (ER) | payer BC, MEDICAID, SELFPAY ==
[2023-09-30 21:30] VITALS: BP 110/78; PULSE 90; RESP 16; TEMP 37.1; O2SAT 97
--- NOTE | 2023-09-30 22:07 | ED_ITS ---
HPI - Weakness 2 General: Chief complaint: Weakness Stated complaint: Vommiting Time Seen by Provider: 09/30/23 21:38 History of Present Illness: 33-year-old female who presents emergenc y room with weakness, vomiting, malaise, neck pain, headache that she says started yesterday. She gone to her primary who had checked her urine and told her she was dehydrated and have a UTI. She was started on some antibiotics she says. She is taken maybe 1 dose. However she is been throwing up today. She says she feels very weak. No focal abdominal pain. No chest pain. No altered mental status. No nuchal rigidity. No fevers. Review of Systems 2 Narrative: Constitutional symptoms: Negative except as documented in HPI. Skin symptoms: Negative except as documented in HPI. Eye symptoms: Negative except as documented in HPI. ENMT symptoms: Negative except as documented in HPI. Respiratory symptoms: Negative except as documented in HPI. Cardiovascular symptoms: Negative except as documented in HPI. Gastrointestinal symptoms: Negative except as documented in HPI. Genitourinary symptoms: Negative except as documented in HPI. Musculoskeletal symptoms: Negative except as documented in HPI. Neurologic symptoms: Negative except as documented in HPI. Psychiatric symptoms: Negative except as documented in HPI. Endocrine symptoms: Negative except as documented in HPI. PFSH ED 2 PFSH: Social History Smoking and tobacco/nicotine status: current every day tobacco/nicotine user cigarettes Packs smoked per day: 1 Years cigarettes smoked: 18 [ Other cigarette details: started at age 14] Physical Exam 2 Narrative: EXAM NARRATIVE: General: Alert, no acute distress. Skin: Warm, dry. Head: Normocephalic, atraumatic. Neck: Supple, trachea midline. Eye: Extraocular movements are intact. Ears, nose, mouth and throat: mucosa moist. Cardiovascular: Regular, Normal peripheral perfusion. Respiratory: Lungs are clear to auscultation, respirations are non-labored, breath sounds are equal, Symmetrical chest wall expansion. Gastrointestinal: Soft, Nontender, Non distended Musculoskeletal: Normal ROM, no deformity. Neurological: Alert and oriented, No focal neurological deficit observed. Psychiatric: Cooperative, appropriate mood & affect. Course 2 Vital Signs: Vital signs: Vital Signs Temperature 98.7 F 09/30/23 21:30 Pulse Rate 71 09/30/23 22:51 Respiratory Rate 16 09/30/23 22:51 Blood Pressure 90/56 09/30/23 22:51 Pulse Oximetry 95 09/30/23 22:51 Oxygen Delivery Me thod Room Air 09/30/23 21:30 MDM - Weakness Medical Decision Making Medical decision making: Differential diagnosis including but not limited to and based on the above HPI, review of systems and physical exam: Concern for UTI. Sepsis. Dehydration. Renal failure. Viral gastroenteritis. Orders placed to evaluate differential diagnosis based on the above differential, HPI and physical exam Lab Review: Laboratory results were reviewed and interpreted by myself the emergency room physician. Patient has a mild leukocytosis white count 10. BUN and creatinine are slightly elevated at 15 and 1.0. Indicating some dehydration. Urine is also somewhat concentrated. She also shows some signs of infection with whites in her urine although she is nitrite negative. I reviewed the patient's medical record. Reexamination: Patient appears somewhat improved after fluids. She ended up receiving 2 L of fluid. Pressures have been a little soft at 90 to about 110, however looking back at old records her blood pressure is always right around 100 systolic. Assessment and plan: UTI Dehydration ? 2 L normal saline bolus, IV Toradol and IV Rocephin. - Discharged home - Discussed plan with patient. Answered any questions. - Evaluation and treatment of this problem were appropriate in the emergency setting. Lab Data 09/30/23 22:40 09/30/23 22:40 Laboratory Results WBC 10.24 10^3/uL (3.29-11.43) 09/30/23 22:40 Corrected WBC Cancelled 09/30/23 21:59 RBC 4.02 10^6/uL (3.85-5.65) 09/30/23 22:40 Hgb 11.60 g/dL (11.27-16.99) 09/30/23 22:40 Hct 34.9 % (36-47) L 09/30/23 22:40 MCV 86.8 fl (85-98) 09/30/23 22:40 MCH 28.9 pg (27-33) 09/30/23 22:40 MCHC 33.2 g/dL (30-55) 09/30/23 22:40 RDW 12.8 % (12.1-15.1) 09/30/23 22:40 Plt Count 293 10^3/cmm (157-399) 09/30/23 22:40 MPV 9.5 fL (7.4-10.4) 09/30/23 22:40 Gran % Cancelled 09/30/23 21:59 Neut % (Auto) 71.4 % 09/30/23 22:40 Lymph % (Auto) 21.5 % 09/30/23 22:40 Holt % (Auto) 6.0 % 09/30/23 22:40 Eos % (Auto) 0.5 % 09/30/23 22:40 Baso % (Auto) 0.4 % 09/30/23 22:40 Neut # (Auto) 7.32 10^3/uL (1.8-7.7) 09/30/23 22:40 Lymph # (Auto) 2.2 10^3/uL (0.8-4.8) 09/30/23 22:40 Holt # (Auto) 0.6 10^3/uL (0.2-0.9) 09/30/23 22:40 Eos # (Auto) 0.1 10^3/uL (0.0-0.8) 09/30/23 22:40 Baso # (Auto) 0.0 10^3/uL (0.0-0.1) 09/30/23 22:40 Absolute Gran (auto) Cancelled 09/30/23 21:59 Nucleated RBC % (auto) 0 % 09/30/23 22:40 Nucleated RBCs # 0.0 /100WBC 09/30/23 22:40 Sodium 139 mmol/L (136-145) 09/30/23 22:40 Potassium 3.5 mmol/L (3.5-5.1) 09/30/23 22:40 Chloride 103 mmol/L (98-107) 09/30/23 22:40 Carbon Dioxide 26 mmol/L (22-29) 09/30/23 22:40 Anion Gap 13.5 (5-19) 09/30/23 22:40 BUN 15 mg/dL (6-20) 09/30/23 22:40 Creatinine 1.0 mg/dL (0.5-0.9) H 09/30/23 22:40 GFR Calculation 63.5 mL/min (90-130) L 09/30/23 22:40 Glucose 99 mg/dL (65-115) 09/30/23 22:40 Calculated Osmolality 289 mOsm/kg (285-295) 09/30/23 22:40 Lactic Acid 1.2 mmol/L (0.5-2.2) 09/30/23 22:40 Calcium 9.1 mg/dL (8.5-10.5) 09/30/23 22:40 Total Bilirubin 0.2 mg/dL (0.15-1.2) 09/30/23 22:40 AST 14 U/L (0-32) 09/30/23 22:40 ALT 13 U/L (0-33) 09/30/23 22:40 Alkaline Phosphatase 63 U/L (35-105) 09/30/23 22:40 C-Reactive Protein 5.1 mg/L (0.0-4.9) H 09/30/23 22:40 Total Protein 6.6 g/dL (6.6-8.7) 09/30/23 22:40 Albumin 4.0 g/dL (3.5-5.2) 09/30/23 22:40 Globulin 2.6 g/dL (1.3-4.6) 09/30/23 22:40 Urine Color Dark yellow (Yellow) A 09/30/23 22:40 Urine Appearance Slightly cloudy (CLEAR) 09/30/23 22:40 Urine pH 6 (5-7) 09/30/23 22:40 Ur Specific [place] 1.025 (1.005-1.030) 09/30/23 22:40 Urine Protein Trace (Negative) 09/30/23 22:40 Urine Glucose (UA) Norm (Normal) 09/30/23 22:40 Urine Ketones 1+ (Negative) H 09/30/23 22:40 Urine Blood 2+ (Negative) H 09/30/23 22:40 Urine Nitrate Negative (Negative) 09/30/23 22:40 Urine Bilirubin 1+ (Negative) H 09/30/23 22:40 Urine Urobilinogen 1 mg/dL (Negative) H 09/30/23 22:40 Ur Leukocyte Esterase Trace (Negative) H 09/30/23 22:40 Urine RBC 5-10 /hpf (0-2) H 09/30/23 22:40 Urine WBC 10-15 /hpf (0-5) H 09/30/23 22:40 Ur Squamous Epith Cells 15-25 /hpf (0-5) H 09/30/23 22:40 Amorphous Sediment Not Reportable 09/30/23 22:40 Urine Bacteria Trace /hpf (NONE) 09/30/23 22:40 Urine Mucus 2+ /hpf 09/30/23 22:40 Serum Ketones Negative (Negative) 09/30/23 22:40 Influenza Type A Ag negative (Negative) 09/30/23 22:40 Influenza Type B Ag negative (Negative) 09/30/23 22:40 SARS-CoV-2 Ag (Rapid) negative (Negative) 09/30/23 22:40 No radiology studies performed this visit Discharge Plan Discharge Patient Disposition: Home Clinical Impression: Urinary tract infection, Dehydration Condition: Stable Prescriptions: New ondansetron 8 mg tablet,disintegrating 8 mg PO .q6 PRN (Reason: nausea and vomiting) Qty: 14 0RF No Action citalopram [Celexa] 20 mg tablet 20 mg PO DAILY baclofen 10 mg tablet 10 mg PO DAILY hydrochlorothiazide 25 mg tablet 25 mg PO DAILY tiotropium bromide [Spiriva with HandiHaler] 18 mcg capsule, w/inhalation device 1 cap inhalation DAILY Qty: 60 6RF Rx Instructions: puncture 1 cap using device; one dose = 2 inhalations albuterol sulfate [Ventolin HFA] 90 mcg/actuation HFA aerosol inhaler 1 inh inhalation Q6H PRN (Reason: shortness of breath or wheezing) Qty: 8.5 4RF meloxicam 15 mg tablet See Rx Instructions .ROUTE .COMPLEX Qty: 30 0RF Dose Instruction: Take 1 tablet by mouth once daily Rx Instructions: Take 1 tablet by mouth once daily trazodone 100 mg tablet 100 mg PO PRN hydrocodone-acetaminophen 5-325 mg tablet 1 tab PO Q6H PRN (Reason: pain) Qty: 20 0RF Discharge Orders: Discharge ED (Routine); Ordered 09/30/23 Ordered By: Keyanna Greene Referrals: Jordin Mahoney MD [Primary Care Provider] - 1-3 days Discharge Diet: Usual diet Discharge Activity: Increase activity as tolerated Patient Instructions: Urinary Tract Infection in Women (ED) Activity Restrictions/Additional Instructions: Thank you for choosing [facility] for your healthcare needs today. Please realize this is an emergency room and that we are providing you with a medical screening exam and this may not be complete and all inclusive of all the testing and or work up that you may need to determine your ailment or severity of your illness. You have been screened and evaluated and felt safe for discharge. Health conditions do change or evolve sometimes and as such it is important that you follow up with your Primary Doctor to be re checked, 3-5 days is a general good time frame for follow up. You are always welcome to return to the ED for re assessment if your symptoms are worsening or you have new concerns Coding Level of Care Code ED Certified Executive Chef for Patti Davenport
[2023-09-30] MEDS: sodium chloride 0.9% 1,000 ML 999 ML IV ×2 (22:33→23:32)
[2023-09-30] MEDS: ondansetron 2 mg/ML SDV 2 mL 8 MG IVP (22:35)
[2023-09-30] MEDS: ketorolac 30 mg/mL INJ IVP (22:35)
[2023-09-30 22:47] LABS: Basophils % 0.4 %; Eosinophils # 0.1 10^3/uL (0.0-0.8); Eosinophils % 0.5 %; Hematocrit 34.9 % (36-47); Lymphocytes # 2.2 10^3/uL (0.8-4.8); Lymphocytes % 21.5 %; Mean Corpuscular HGB Conc 33.2 g/dL (30-55); Mean Corpuscular Hemoglobin 28.9 pg (27-33); Mean Corpuscular Volume 86.8 fl (85-98); Mean Platelet Volume 9.5 fL (7.4-10.4); Monocytes # 0.6 10^3/uL (0.2-0.9); Neutrophils # 7.32 10^3/uL (1.8-7.7); Neutrophils % 71.4 %; Nucleated Red Blood Cells % 0 %; Platelet Count 293 10^3/cmm (157-399); Red Blood Count 4.02 10^6/uL (3.85-5.65); Red Cell Distribution Width 12.8 % (12.1-15.1); White Blood Count 10.24 10^3/uL (3.29-11.43)
[2023-09-30 22:51] VITALS: BP 90/56; PULSE 71; RESP 16; O2SAT 95
[2023-09-30 22:54] LABS: Bilirubin Urine 1+ (Negative); Blood Urine 2+ (Negative); Glucose Urine UA Norm (Normal); Ketones Urine 1+ (Negative); Leukocyte Esterase Urine Trace (Negative); Nitrate Urine Negative (Negative); Protein Urine Trace (Negative); Specific Gravity, Urine 1.025 (1.005-1.030); Urine Appearance Slightly Cloudy (CLEAR); Urine Color Dark Yellow (Yellow); Urobilinogen Urine 1 mg/dL (Negative); pH Urine 6 (5-7)
[2023-09-30 22:55] LABS: Add Urine Culture? No; Bacteria Urine TRACE /hpf; Mucus Urine 2+ /hpf; Squamous Epithelial Cell Urine 15-25 /hpf (0-5)
[2023-09-30 22:56] LABS: Ketone (Acetest) Serum Negative (Negative)
[2023-09-30 23:03] LABS: Alanine Aminotransferase 13 U/L (0-33); Alkaline Phosphatase 63 U/L (35-105); Anion Gap 13.5 (5-19); Aspartate Amino Transferase 14 U/L (0-32); Blood Urea Nitrogen 15 mg/dL (6-20); C Reactive Protein 5.1 mg/L (0.0-4.9); Calcium 9.1 mg/dL (8.5-10.5); Carbon Dioxide 26 mmol/L (22-29); Chloride 103 mmol/L (98-107); Creatinine Clr Calc Pharmacy 98.5684; Globulin 2.6 g/dL (1.3-4.6); Glomerular Filtration Rate 63.5 mL/min (90-130); Glucose 99 mg/dL (65-115); Influenza A by IFA negative (Negative); Influenza B by IFA negative (Negative); Osmolality Calculated 289 mOsm/kg (285-295); Potassium 3.5 mmol/L (3.5-5.1); SARS Covid-2 Antigen negative (Negative); Sodium 139 mmol/L (136-145); Total Bilirubin 0.2 mg/dL (0.15-1.2); Total Protein 6.6 g/dL (6.6-8.7)
[2023-09-30 23:04] LABS: Lactic Sepsis W/Reflex 1.2 mmol/L (0.5-2.2)
[2023-09-30] MEDS: cefTRIAXone 1,000 mg SDV 1000 MG IVP (23:10)
[2023-09-30] MEDS: water for injection-sterile 10 ML (23:10)
[2023-09-30 23:51] VITALS: BP 104/62; PULSE 88; RESP 16; O2SAT 98
== END 2023-09-30 23:53 | disposition home or self-care (01) ==
PROVIDERS: Emergency Provider Emergency Medicine; PCP Family Medicine
DX: R51.9 Headache, unspecified (principal); R11.10 Vomiting, unspecified; E86.0 Dehydration; N39.0 Urinary tract infection, site not specified
CPT/HCPCS: 36415; 80053; 81001; 82009; 83605; 85025; 86140; 87040; 87426; 87804; 96365; 96375; 99284; J0696; J1885; J2405; J7030

== ENCOUNTER 2023-11-06 10:56 | Outpatient (CLI) | payer BC, MEDICAID, SELFPAY ==
--- NOTE | 2023-11-06 11:00 | US_ITS ---
WS: [id number] RENAL ULTRASOUND URINARY BLADDER ULTRASOUND HISTORY: HEMATURIA COMPARISON: None available. TECHNIQUE: 2-D and color Doppler imaging of the kidney submitted. Right kidney: 10.5 cm x 4.4 cm x 4.9 cm. Normal echogenicity with no hydronephrosis or mass. Left kidney: 11.5 cm x 4.7 cm x 5.6 cm. Normal echogenicity with no hydronephrosis or mass. Aorta: Normal. Urinary Bladder: Normal distention. US/US renal BI with PV bladder IMPRESSION: Normal renal ultrasound.
== END 2023-11-06 10:57 | disposition home or self-care (01) ==
LOC: RAD 10:56
PROVIDERS: PCP Family Medicine; Visit Provider Family Medicine
DX: R31.9 Hematuria, unspecified (principal)
CPT/HCPCS: 76770; 76857

== ENCOUNTER 2023-12-22 14:14 | Outpatient (CLI) | payer BC, MEDICAID, SELFPAY ==
--- NOTE | 2023-12-22 14:17 | CTR_ITS ---
PROCEDURE INFORMATION: Exam: CT Abdomen And Pelvis Without And With Contrast Exam date and time: 12/22/2023 2:57 PM Age: 33 years old Clinical indication: Patient HX: Hematuria x 10 months, on and off lower abd pain/cramps. PT did not want to remove scrub top after getting iv done. US started-hard stick TECHNIQUE: Imaging protocol: Computed tomography of the abdomen and pelvis without and with contrast. 3D rendering (Not supervised by radiologist): MIP and/or 3D reconstructed images were created by the technologist. Radiation optimization: All CT scans at this facility use at least one of these dose optimization techniques: automated exposure control; mA and/or kV adjustment per patient size (includes targeted exams where dose is matched to clinical indication); or iterative reconstruction. Contrast material: OMNI 350; Contrast volume: 100 ml; Contrast route: INTRAVENOUS (IV); COMPARISON: PT PET skull to thigh INIT [id number] 05/12/2023 9:00 AM RADIATION DOSE METRICS: Total DLP (mGy-cm): 2163.2 FINDINGS: Liver: Subcentimeter hepatic hypodensities remain too small to characterize but appear stable and are likely benign. Gallbladder and biliary ducts: Normal. No calcified stones. No ductal dilation. Pancreas: Normal. No ductal dilation. Spleen: Normal. No splenomegaly. Adrenal glands: Normal. No mass. Kidneys and ureters: No hydronephrosis. There appears to be some irregularity along a right renal papilla in the right mid kidney with a so-called lobster claw sign (for example on coronal series 11, image 37). The renal collecting systems and ureters are otherwise normally opacified on the delayed phase. No filling defects identified. Stomach and bowel: Unremarkable. No obstruction. No mucosal thickening. Appendix: No evidence of appendicitis. Intraperitoneal space: Unremarkable. No free air. No significant fluid collection. Vasculature: Unremarkable. No abdominal aortic aneurysm. Lymph nodes: Unremarkable. No enlarged lymph nodes. Urinary bladder: Unremarkable as visualized. Reproductive: Left ovarian dominant follicle. No suspicious adnexal mass. Uterus is within normal limits for size. Bones/joints: Degenerative changes of the visualized spine. No acute fracture. Soft tissues: Unremarkable. CT/CT abdomen pelvis wo/w [id number] IMPRESSION: 1. 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 The remaining renal collecting systems and ureters are normal in appearance. 2. No nephrolithiasis.
[2023-12-22] MEDS: iohexol 350 mg/mL 500 mL Btl (per mL) IV (15:07)
== END 2023-12-22 14:15 | disposition home or self-care (01) ==
LOC: RAD 14:14
PROVIDERS: PCP Family Medicine; Visit Provider Nurse Practitioner Family
DX: R93.421 Abnormal radiologic findings on diagnostic imaging of right kidney (principal); R31.9 Hematuria, unspecified
CPT/HCPCS: 74178

== ENCOUNTER 2024-04-16 17:15 | Emergency (ER) | payer BC, MEDICAID, SELFPAY ==
[2024-04-16 17:22] VITALS: BP 117/71; PULSE 102; RESP 16; TEMP 36.6; O2SAT 99
--- NOTE | 2024-04-16 18:55 | W.ED.WOUNDLC ---
HPI - Wound/Laceration General: Chief Complaint: Wound/Laceration Stated Complaint: cut finger left hand Time Seen by Provider: 04/16/24 17:30 Source: patient Mode of arrival: ambulatory Limitations: no limitations History of Present Illness: Patient is a 34-year-old female presents to ED today for evaluation of a laceration to her left index finger that she sustained just prior to arrival after she was using a knife to cut open a frozen bag. Tetanus is up-to-date. Does complain of numbness/burning to finger. She has no other injuries or complaints at this time. Onset (ago): hour(s) Place: home Patient tetanus UTD: Yes Context: accidental Associated symptoms: Reports no associated symptoms Treatments prior to arrival: bandage Related Data Home Medications Medication Instructions Recorded Confirmed baclofen 10 mg tablet 10 mg PO DAILY 12/02/22 08/19/23 citalopram 20 mg tablet (Celexa) 20 mg PO DAILY 12/02/22 08/19/23 hydrochlorothiazide 25 mg tablet 25 mg PO DAILY 12/02/22 08/19/23 trazodone 100 mg tablet 100 mg PO PRN 06/10/23 08/19/23 Previous Rx's Medication Instructions Recorded tiotropium bromide 18 mcg capsule 1 cap inhalation DAILY #60 12/02/22 with inhalation device (Spiriva inhalations with HandiHaler) albuterol sulfate 90 mcg/actuation 1 inh inhalation Q6H PRN shortness 03/26/23 aerosol inhaler (Ventolin HFA) of breath or wheezing #8.5 grams hydrocodone 5 mg-acetaminophen 325 1 tab PO Q6H PRN pain #20 tabs 06/10/23 mg tablet meloxicam 15 mg tablet See Rx Instructions .Route 07/20/23 .COMPLEX #30 tabs ondansetron 8 mg disintegrating 8 mg PO .q6 PRN nausea and 09/30/23 tablet vomiting #14 tabs Allergies Allergy/AdvReac Type Severity Reaction Status Date / Time No Known Allergies Allergy Verified 04/16/24 17:28 Review of Systems Musc: Reports: extremity pain (L index finger laceration) Skin/Breast: Reports: other (laceration L finger) Neuro: Reports: numbness in extremities (L index finger) and sensory changes (L index finger) PFS ED PFSH: Social History Smoking and tobacco/nicotine status: current every day tobacco/nicotine user cigarettes Packs smoked per day: 1 Years cigarettes smoked: 18 [ Other cigarette details: started at age 14] Physical Exam Const: COMMON NORMALS: no acute distress, patient oriented x3, no limitations, healthy appearing, alert and well nourished Extremity: COMMON NORMALS: full ROM and capillary refill normal GENERAL: Yes normal exam except as noted LEFT UPPER EXTREMITY: Yes hand & digits (small 1cm laceration L index finger palmar proximal phalanx) Left hand and digits: Yes ROM (normal) and Yes neurovascular exam (normal cap refill of digit; she does complain of burning/numbness) Neuro: COMMON NORMALS: patient oriented x3, moves all extremities, no focal motor deficits and no sensory deficits noted SENSORIUM/ORIENTATION: Yes alert Skin: TRAUMA: laceration Procedures Laceration Laceration 1: Site: hand Side (If applicable): left Size (cm): 1.25 Description: linear Depth: simple, single layer Local Anesthetic: lidocaine 2% Amount of anesthesia used (mL): 2.0 Pre-repair: wound explored and irrigated extensively Skin layer closed with: nylon Size (cm): 5-0 Number of sutures: 3 Technique: simple, interrupted Course Vital Signs: Vital signs: Vital Signs Temperature 97.9 F 04/16/24 17:22 Pulse Rate 102 H 04/16/24 17:22 Respiratory Rate 16 04/16/24 17:22 Blood Pressure 117/71 04/16/24 17:22 Pulse Oximetry 99 04/16/24 17:22 Oxygen Delivery Me thod Room Air 04/16/24 17:22 MDM - Wound/Laceration Medical Decision Making Wound copiously irrigated and repaired as documented. XR of the finger is unremarkable. Her tetanus is up-to-date. Will have her follow-up with hand surgery for assessment of any type of nerve injury given the fact that she was complaining of burning and numbness to the digit. There was no tendon involvement. Differential Diagnosis Likely laceration XR interpretation done by ED provider, pending radiology final review Discharge Plan Discharge Patient Disposition: Home Clinical Impression: Laceration of left index finger Condition: Stable Prescriptions: No Action citalopram [Celexa] 20 mg tablet 20 mg PO DAILY baclofen 10 mg tablet 10 mg PO DAILY hydrochlorothiazide 25 mg tablet 25 mg PO DAILY tiotropium bromide [Spiriva with HandiHaler] 18 mcg capsule, w/inhalation device 1 cap inhalation DAILY Qty: 60 6RF Rx Instructions: puncture 1 cap using device; one dose = 2 inhalations albuterol sulfate [Ventolin HFA] 90 mcg/actuation HFA aerosol inhaler 1 inh inhalation Q6H PRN (Reason: shortness of breath or wheezing) Qty: 8.5 4RF meloxicam 15 mg tablet See Rx Instructions .ROUTE .COMPLEX Qty: 30 0RF Dose Instruction: Take 1 tablet by mouth once daily Rx Instructions: Take 1 tablet by mouth once daily ondansetron 8 mg tablet,disintegrating 8 mg PO .q6 PRN (Reason: nausea and vomiting) Qty: 14 0RF trazodone 100 mg tablet 100 mg PO PRN hydrocodone-acetaminophen 5-325 mg tablet 1 tab PO Q6H PRN (Reason: pain) Qty: 20 0RF Discharge Orders: Discharge ED (Routine); Ordered 04/16/24 Ordered By: Jaki Dickerson Referrals: Jordin Mahoney MD [Primary Care Provider] - Patient Instructions: Finger Laceration (ED) Activity Restrictions/Additional Instructions: Keep wound/laceration clean with warm soap and water twice daily. Monitor for signs of infection such as redness, swelling, increased pain, or drainage. Please seek medical re-evaluation if these occur. If you received sutures today these will need to be removed (unless you were told by the provider that they are absorbable). The provider should have discussed with you the length of time until removal-7 days. As we discussed, case management should reach out to you to help set you up with your follow-up appointment with hand surgery given your complaint of numbness/burning to the digit. Stand Alone Forms: Work/School Release Coding Level of Care Code ED Certified Nurses Aide for Patti Davenport
--- NOTE | 2024-04-16 18:58 | XRR_ITS ---
PROCEDURE INFORMATION: Exam: XR Left Finger(s) Exam date and time: 04/16/2024 7:09 PM Age: 34 years old Clinical indication: Injury or trauma; Left; Patient HX: Laceration to lt lateral index finger near 2nd mcpj TECHNIQUE: Imaging protocol: Radiologic exam of the left fingers. Views: Minimum 2 views. COMPARISON: No relevant prior studies available. FINDINGS: Bones/joints: Negative exam for fracture. Soft tissues: There is proximal 2nd digit soft tissue swelling. No radiopaque foreign body. XR/XR finger LT min 2V [id number] IMPRESSION: Soft tissue swelling without fracture. No radiopaque foreign body.
[2024-04-16] MEDS: lidocaine 2% INJ 20 mL INJECTION (19:08)
[2024-04-16] MEDS: HYDROcodone-acetaminophen 5-325 mg Tablet 2 TAB PO (20:04)
[2024-04-16 20:31] VITALS: BP 146/80; PULSE 92; RESP 16; O2SAT 97
--- NOTE | 2024-04-20 07:27 | DCPLANNER ---
Message sent to Ortho for follow up
== END 2024-04-16 20:05 | disposition home or self-care (01) ==
PROVIDERS: Emergency Provider Physician Assistant; PCP Family Medicine
DX: S61.211A Laceration without foreign body of left index finger without damage to nail, initial encounter (principal); F17.210 Nicotine dependence, cigarettes, uncomplicated; W26.0XXA Contact with knife, initial encounter
CPT/HCPCS: 12001; 73140; 99283

== ENCOUNTER → 2024-04-26 14:43 | Outpatient (BNVA) | payer BC, MEDICAID, SELFPAY | PROVIDERS: PCP Family Medicine; Visit Provider Orthopaedic Surgery | DX: M79.642 Pain in left hand (principal) | CPT/HCPCS: 73130 ==

== ENCOUNTER 2024-07-06 07:34 | Outpatient (CLI) | payer BC, MEDICAID, SELFPAY ==
--- NOTE | 2024-07-06 07:38 | US_ITS ---
WS: [id number] RENAL ULTRASOUND HISTORY: RENAL LESION COMPARISON: 11/06/2023, CT 12/22/2023 TECHNIQUE: 2-D and color Doppler imaging of the kidney submitted. Right kidney: 10.4 cm x 4.3 cm x 4.5 cm. Cortex: 1.0 cm Normal echogenicity with no hydronephrosis or mass. Left kidney: 11.6 cm x 4.7 cm x 4.6 cm. Cortex: 1.1 cm Normal echogenicity with no hydronephrosis or mass. Aorta: Normal. Urinary Bladder: Nondistended. US/US renal BI* [id number] IMPRESSION: 1. No renal mass or obstruction. 2. The previously described lesion in the medial RIGHT kidney may be difficult to identify by ultrasound due to its small size and medial position. Cortical lesion is not identified by ultrasound. Consider further evaluation by CT or MR I, with and without IV contrast using renal mass protocol.
== END 2024-07-06 07:35 | disposition home or self-care (01) ==
PROVIDERS: PCP Family Medicine; Visit Provider Urology
DX: N28.9 Disorder of kidney and ureter, unspecified (principal)
CPT/HCPCS: 76770